=== PATIENT | female | born 1995 ===

== ENCOUNTER 2017-05-18 10:04 | Emergency (ER) | payer SELFPAY ==
[2017-05-18 10:44] VITALS: RESP 20; O2SAT 100
--- NOTE | 2017-05-18 11:21 | C.PDOC ---
History Of Present Illness 21 y/o female presents to ED with complaints of muscle pain, nose congestion and headache for 3 days. Patient denies sick contacts, chest pain, fever, chills , nausea, vomiting or any other complaints at this time. Chief Complaint (Nursing): Flu-like Symptoms History Per: Patient History/Exam Limitations: no limitations Onset/Duration Of Symptoms: Days Current Symptoms Are (Timing): Still Present Past Medical History Reviewed: Historical Data, Nursing Documentation, Vital Signs Vital Signs: Last Vital Signs Temp 99.5 F 05/18/17 10:40 Pulse 102 H 05/18/17 10:40 Resp 20 05/18/17 10:40 BP 111/75 05/18/17 10:40 Pulse Ox 100 05/18/17 11:51 - Medical History PMH: No Chronic Diseases Surgical History: No Surg Hx Family History: States: No Known Family Hx - Social History Hx Alcohol Use: No Hx Substance Use: No - Immunization History Hx Tetanus Toxoid Vaccination: No Hx Influenza Vaccination: No Hx Pneumococcal Vaccination: No Review Of Systems Constitutional: Negative for: Fever, Chills ENT: Positive for: Nose Congestion Gastrointestinal: Negative for: Nausea, Vomiting Neurological: Positive for: Headache. Negative for: Weakness, Numbness Physical Exam - Physical Exam Appears: Non-toxic, No Acute Distress Skin: Warm, Dry, No Rash Head: Atraumatic, Normacephalic Eye(s): bilateral: Normal Inspection Ear(s): Bilateral: Normal Oral Mucosa: Moist Throat: Normal, No Erythema, No Exudate Neck: Supple, Other (Mild sub madibular tender adenitis ) Chest: Symmetrical Cardiovascular: Rhythm Regular Respiratory: Normal Breath Sounds, No Rales, No Rhonchi, No Wheezing Gastrointestinal/Abdominal: Soft, No Tenderness, No Guarding, No Rebound Neurological/Psych: Oriented x3 ED Course And Treatment O2 Sat by Pulse Oximetry: 100 (RA) Pulse Ox Interpretation: Normal Medical Decision Making Medical Decision Making: Impression: Plan: Influenza Test Disposition - Disposition Referrals: [facility] [Outside] Disposition: HOME/ ROUTINE Disposition Time: 12:08 Condition: GOOD Instructions: Viral Syndrome (ED) Forms: [facility] ([place]ese) - Clinical Impression Clinical Impression: Influenza-like illness - Scribe Statement The provider has reviewed the documentation as recorded by the Scribe Andriy Bills All medical record entries made by the Scribe were at my direction and personally dictated by me. I have reviewed the chart and agree that the record accurately reflects my personal performance of the history, physical exam, medical decision making, and the department course for this patient. I have also personally directed, reviewed, and agree with the discharge instructions and disposition.
[2017-05-18 11:47] LABS: SQUAMOUS EPITHIAL 2 /hpf (0-5); URINE BACTERIA OCC (<OCC); URINE BILIRUBIN NEGATIVE (NEGATIVE); URINE BLOOD NEGATIVE (NEGATIVE); URINE CLARITY Hazy (Clear); URINE COLOR Yellow (YELLOW); URINE GLUCOSE (UA) NORMAL (Normal); URINE LEUKOCYTE ESTERASE NEG Leu/uL (Negative); URINE NITRATE NEGATIVE (NEGATIVE); URINE PROTEIN NEGATIVE (NEGATIVE)
[2017-05-18 12:28] VITALS: BP 128/78; PULSE 90; TEMP 99
== END 2017-05-18 12:28 | disposition home or self-care (01) ==
LOC: C.ER 10:04
DX: J11.1 Influenza due to unidentified influenza virus with other respiratory manifestations (principal)

== ENCOUNTER 2017-09-11 13:04 | Emergency (ER) | payer OTHER ==
[2017-09-11 13:20] VITALS: BP 118/69; PULSE 85; RESP 20; TEMP 99.1; O2SAT 95
--- NOTE | 2017-09-11 13:53 | C.PDOC ---
History Of Present Illness 21 year old female with no known history prsented with left ankle pain. Pt states she was at work when her leg hit a bed frame. She denies any numbness or weakness. She is weight bearing and has pain on ambulation. Time Seen by Provider: 09/11/17 13:34 Chief Complaint (Nursing): Lower Extremity Problem/Injury History Per: Patient, Family Onset/Duration Of Symptoms: Hrs Current Symptoms Are (Timing): Still Present Pain Scale Rating Of: 8 Recent travel outside of the [place]: No Additional History Per: Patient, Family - Hip Description Of Injury: Other (Hit a metal bed frame) - Knee Description Of Injury: Struck Against Object Alleviating Factor(s): Ice Therapy, Other (Motrin) Past Medical History Vital Signs: Last Vital Signs Temp 99.1 F 09/11/17 13:17 Pulse 85 09/11/17 13:17 Resp 20 09/11/17 13:17 BP 118/69 09/11/17 13:17 Pulse Ox 95 09/11/17 13:53 Surgical History: No Surg Hx Family History: States: No Known Family Hx - Social History Hx Alcohol Use: No Hx Substance Use: No - Immunization History Hx Tetanus Toxoid Vaccination: No Hx Influenza Vaccination: No Hx Pneumococcal Vaccination: No Review Of Systems Except As Marked, All Systems Reviewed And Found Negative. Musculoskeletal: Positive for: Leg Pain. Negative for: Back Pain, Foot Pain Neurological: Negative for: Weakness, Numbness Physical Exam - Physical Exam Appears: Well Skin: Normal Color Head: Atraumatic Eye(s): bilateral: Normal Inspection Ear(s): Bilateral: Normal Nose: Normal Oral Mucosa: Moist Tongue: Normal Appearing Lips: Normal Appearing Teeth: Normal Dentition Gingiva: Normal Appearing Throat: Normal Neck: Normal Chest: Symmetrical Cardiovascular: Rhythm Regular Respiratory: Normal Breath Sounds Gastrointestinal/Abdominal: Normal Exam Extremity: Tenderness Extremity: Left: [place]ony Point Tenderness (ankle anterior aspect of distal tibia), Normal Color And Temperature Pulses: Left Dorsalis Pedis: Normal Gait: With Assistance ED Course And Treatment O2 Sat by Pulse Oximetry: 95 Medical Decision Making Medical Decision Makin21 year old F presented with left ankle pain s/p hit against metal frame plan: pain control, left ankle x-ray, cold pack and reassess. Disposition - Disposition Disposition: HOME/ ROUTINE Disposition Time: 14:39 Condition: GOOD Prescriptions: Ibuprofen [Motrin Ib] 600 mg PO Q6 5 Days #20 tablet Instructions: Contusion (DC) Forms: [facility] (G[place]adian) - Clinical Impression Clinical Impression: Contusion
--- NOTE | 2017-09-11 14:34 | RAD ---
PROCEDURE: Left Ankle Radiographs. HISTORY: Rule out fracture COMPARISON: None FINDINGS: BONES: No evidence of acute displaced fracture nor dislocation. The osseous structures appear intact. JOINTS: No significant osteoarthritis. Ankle mortise maintained. Talar dome intact SOFT TISSUES: There appears be mild medial soft tissue swelling OTHER FINDINGS: None. IMPRESSION: No evidence of acute displaced fracture nor dislocation. Mild medial soft tissue swelling.
== END 2017-09-11 14:45 | disposition home or self-care (01) ==
LOC: C.ER 13:04
DX: S90.02XA Contusion of left ankle, initial encounter (principal); W22.8XXA Striking against or struck by other objects, initial encounter; Y92.89 Other specified places as the place of occurrence of the external cause; Y99.0 Civilian activity done for income or pay